=== PATIENT | male | born 1980 | race Caucasian/White ===

== ENCOUNTER → 2017-06-19 | Outpatient (CLI) | payer BC ==
[2017-06-19 12:06] LABS: FREE THYROXIN INDEX 8.4 ug/dl (5.93-13.13)
== END ==
LOC: LAB 10:05
PROVIDERS: Orthopaedic Surgery
DX: G56.00 Carpal tunnel syndrome, unspecified upper limb (principal); Z01.812 Encounter for preprocedural laboratory examination

== ENCOUNTER 2017-07-21 10:04 | Day surgery (SDC) | payer BC ==
[~2017-07-21] VITALS: Ht 185.4 cm; Wt 99.8 kg
[2017-07-21 12:38] VITALS: BP 134/82
--- NOTE | 2017-07-21 12:55 | Operative Note ---
Procedure/Operative Record Date of Procedure: 07/21/17 Pre-op diagnosis: RIGHT carpal tunnel syndrome Post-op diagnosis: Same Procedure performed: RIGHT carpal tunnel release Surgeon: Joni Delcid Anesthesia: [place] block anesthetic Indications: This 37-year-old male has symptoms are RIGHT carpal tunnel syndrome unresponsive to conservative therapy. Carpal tunnel release of the RIGHT more symptomatic side is considered appropriate, medically necessary, and is considered standard of care. This is done to prevent ongoing damage to the median nerve and improve hand function Description of procedure: The patient was taken to the operating room and the above anesthetic administered. After exsanguination, the tourniquet was inflated to 250 torr and a [place] block anesthetic administered. Please see nurses record for total tourniquet time. The right arm was prepped and draped in the usual sterile fashion. Scott's landmarks were utilized and an incision made parallel to the thenar crease with a 15 blade. Blunt tissue dissection through the subcutaneous tissue down to the palmar fascia was performed. The palmar fascia was incised with a 69 [place] blade to reveal the transverse carpal ligament. Some fibers the palmaris brevis were swept aside to adequate expose the transverse carpal ligament and the transverse carpal ligament was then incised with a 69 [place] blade just enough to expose the median nerve. We then protected the median nerve with a [place] elevator and extended the incision on the ulnar aspect of the nerve using the [place] blade. We then completed the incision proximally using a pair of tenotomy scissors ensuring that the transverse carpal ligament was NOT contiguous with the antebrachial fascia. A complete release proximally was documented by easily obtained side to side movement of the proximal carpal tunnel segments. Attention was then turned distally. Similarly, we incised the distal aspect of the transverse carpal ligament using the tenotomy scissors. Fat demarcating the end of the carpal tunnel was identified and we ensured that the motor branch was not endangered by any anatomic variation. We also then ensured that we had free side to side movement of the entire transverse carpal tunnel ligament segments. We then inspected the nerve. Slight hyperemic changes were identified and a generalized duskiness was noted. There was duskiness involving an area of the nervel as well. There were no space-occupying lesions within the transverse carpal canal. We then irrigated the incision and then closed with a running 4-0 nylon suture. Dressings were applied and the tourniquet deflated and then the patient was transported to the recovery room in satisfactory condition. EBL (ml): 0 at 0961
--- NOTE | 2017-07-21 12:55 | Operative Note ---
Procedure/Operative Record Date of Procedure: 07/21/17 Pre-op diagnosis: RIGHT carpal tunnel syndrome Post-op diagnosis: Same Procedure performed: RIGHT carpal tunnel release Surgeon: Joni Delcid Anesthesia: [place] block anesthetic Indications: This 37-year-old male has symptoms are RIGHT carpal tunnel syndrome unresponsive to conservative therapy. Carpal tunnel release of the RIGHT more symptomatic side is considered appropriate, medically necessary, and is considered standard of care. This is done to prevent ongoing damage to the median nerve and improve hand function Description of procedure: The patient was taken to the operating room and the above anesthetic administered. After exsanguination, the tourniquet was inflated to 250 torr and a [place] block anesthetic administered. Please see nurses record for total tourniquet time. The right arm was prepped and draped in the usual sterile fashion. Scott's landmarks were utilized and an incision made parallel to the thenar crease with a 15 blade. Blunt tissue dissection through the subcutaneous tissue down to the palmar fascia was performed. The palmar fascia was incised with a 69 [place] blade to reveal the transverse carpal ligament. Some fibers the palmaris brevis were swept aside to adequate expose the transverse carpal ligament and the transverse carpal ligament was then incised with a 69 [place] blade just enough to expose the median nerve. We then protected the median nerve with a [place] elevator and extended the incision on the ulnar aspect of the nerve using the [place] blade. We then completed the incision proximally using a pair of tenotomy scissors ensuring that the transverse carpal ligament was NOT contiguous with the antebrachial fascia. A complete release proximally was documented by easily obtained side to side movement of the proximal carpal tunnel segments. Attention was then turned distally. Similarly, we incised the distal aspect of the transverse carpal ligament using the tenotomy scissors. Fat demarcating the end of the carpal tunnel was identified and we ensured that the motor branch was not endangered by any anatomic variation. We also then ensured that we had free side to side movement of the entire transverse carpal tunnel ligament segments. We then inspected the nerve. Slight hyperemic changes were identified and a generalized duskiness was noted. There was duskiness involving an area of the nervel as well. There were no space-occupying lesions within the transverse carpal canal. We then irrigated the incision and then closed with a running 4-0 nylon suture. Dressings were applied and the tourniquet deflated and then the patient was transported to the recovery room in satisfactory condition. EBL (ml): 0 at 1367
== END 2017-07-21 12:12 | disposition home or self-care (01) ==
LOC: SDC 10:04
PROVIDERS: Orthopaedic Surgery
PROC: 01N50ZZ Release Median Nerve, Open Approach (ICD-10-PCS; principal; 2017-07-21 12:00)
DX: G56.01 Carpal tunnel syndrome, right upper limb (principal)

== ENCOUNTER 2017-07-30 09:05 | Day surgery (SDC) | payer BC ==
[~2017-07-30] VITALS: Ht 182.9 cm; Wt 99.8 kg
[2017-07-30 13:31] VITALS: BP 155/97
== END 2017-07-30 13:12 | disposition home or self-care (01) ==
LOC: SDC 09:05
PROVIDERS: Orthopaedic Surgery
PROC: 01N50ZZ Release Median Nerve, Open Approach (ICD-10-PCS; principal; 2017-07-30 11:00)
DX: G56.01 Carpal tunnel syndrome, right upper limb (principal)